=== PATIENT | male | born 1985 | race Caucasian/White ===

== ENCOUNTER 2019-12-04 10:09 | Emergency (ER) | payer SELFPAY ==
[~2019-12-04] VITALS: Ht 177.8 cm; Wt 109.0 kg
[2019-12-04 10:11] VITALS: BP 146/96
== END 2019-12-04 15:02 | disposition left against medical advice (07) ==
LOC: ER 10:52
DX: R07.89 Other chest pain (principal)
CPT/HCPCS: 93005; 99283